=== PATIENT | female | born 1980 | race African-American/Black ===

== ENCOUNTER 2016-08-27 12:32 | Emergency (ER) | payer BC, OTHER ==
[~2016-08-27] VITALS: Ht 162.6 cm; Wt 65.8 kg
[~2016-08-27 12:32] MED LIST: AUGMENTIN 875875 MG PO; BACTRIM DS TAB1 EACH PO; FLAGYL500 M1 PO; HYDROCODONE-APA1 TA1 PO; IBUPROFEN 800800 MG PO; NAPROSYN500 MG PO; NOHOMEMEDICATIONS; NORCO 5-325 TA1 EACH PO; PRILOSEC 20 MG20 MG PO; SENOKOT-S1 TA1 PO; TRAMADOL 50 MG50 MG PO; ULTRAM 50MG TAB50 MG PO
[2016-08-27] MEDS ORDERED: MUPIROCIN15 GM TP (13:34)
== END 2016-08-27 13:50 | disposition home or self-care (01) ==
LOC: ER 12:32
DX: L73.8 Other specified follicular disorders (principal); Z71.1 Person with feared health complaint in whom no diagnosis is made

== ENCOUNTER 2019-01-21 09:21 | Emergency (ER) | payer BC, OTHER ==
[~2019-01-21] VITALS: Ht 160 cm; Wt 45.4 kg
[~2019-01-21 09:21] MED LIST changes: +MUPIROCIN15 GM TP
[2019-01-21] MEDS ORDERED: SUDOGEST30 MG PO (11:59)
[2019-01-21] MEDS ORDERED: TESSALON PERLE100 MG PO (11:59)
[2019-01-21] MEDS ORDERED: VENTOLIN HFA 1818 GM INH (11:59)
[2019-01-21 12:05] VITALS: BP 111/71
== END 2019-01-21 12:10 | disposition home or self-care (01) ==
LOC: ER 09:21
DX: J06.9 Acute upper respiratory infection, unspecified (principal); J98.01 Acute bronchospasm; Z87.891 Personal history of nicotine dependence

== ENCOUNTER 2020-08-15 20:52 | Emergency (ER) | payer BC, OTHER ==
[~2020-08-15] VITALS: Ht 160 cm; Wt 61.2 kg
[~2020-08-15 20:52] MED LIST changes: +SUDOGEST30 MG PO; +TESSALON PERLE100 MG PO; +VENTOLIN HFA 1818 GM INH
[2020-08-15 21:38] LABS: URINE BILIRUBIN NEGATIVE (Negative); URINE BLOOD 3+ (Negative); URINE CLARITY CLEAR; URINE COLOR YELLOW; URINE GLUCOSE-RANDOM* NEGATIVE (Negative); URINE KETONES 1+ (Negative); URINE LEUKOCYTES-REFLEX TRACE (Negative); URINE NITRITE-REFLEX NEGATIVE (Negative); URINE PROTEIN (DIPSTICK) TRACE (Negative)
[2020-08-15 21:50] LABS: SQUAMOUS >10 Many /LPF (0-3)
[2020-08-15 21:51] LABS: BACTERIA-REFLEX None Seen /HPF (None Seen); CASTS None Seen /LPF (None Seen); CRYSTALS None Seen /LPF (None Seen); URINE RBC 3-10 Few /HPF (NONE SEEN); URINE WBC-REFLEX 0-5 Rare /HPF (0-5)
[2020-08-15 22:07] LABS: ABSOLUTE NEUTROPHILS 5.8 thou/uL (1.4-8.2); BASOPHILS 0.6 % (0.0-2.0); EOSINOPHILS 0.2 % (0.0-3.0); HEMOGLOBIN 12.3 gm/dL (12.0-15.0); LYMPHOCYTES 10.7 % (24.0-44.0); MCH 26.8 pg (26.0-34.0); MCHC 33.3 g/dL (28.0-37.0); MCV 80.7 fL (80.0-100.0); MONOCYTES 2.8 % (1.0-8.0); PLATELET COUNT 211 thou/uL (150-400); POLYS 85.7 % (36.0-66.0); RBC 4.59 mil/uL (4.20-5.00); RDW 14.1 % (10.5-14.5); WBC 6.7 thou/uL (4.0-11.0)
[2020-08-15 22:13] LABS: CALCIUM 8.8 mg/dL (8.5-10.1); CREATININE 0.8 mg/dL (0.6-1.0); POTASSIUM 3.7 mmol/L (3.5-5.1)
[2020-08-15 22:20] LABS: ALBUMIN 3.9 g/dL (3.4-5.0); TOTAL BILIRUBIN 0.4 mg/dL (0.2-1.0); TOTAL PROTEIN 7.4 g/dL (6.4-8.2)
[2020-08-16] MEDS ORDERED: CARAFATE1 GM PO (00:20)
[2020-08-16] MEDS ORDERED: ZOFRAN ODT4 MG PO (00:20)
[2020-08-16] MEDS ORDERED: NEXIUM40 MG PO (00:20)
[2020-08-16 00:52] VITALS: BP 121/71
== END 2020-08-16 00:53 | disposition home or self-care (01) ==
LOC: ER 20:52
PROVIDERS: Emergency Medicine
DX: K29.70 Gastritis, unspecified, without bleeding (principal); F17.210 Nicotine dependence, cigarettes, uncomplicated

== ENCOUNTER 2020-12-06 13:44 | Emergency (ER) | payer BC, OTHER ==
[~2020-12-06] VITALS: Ht 160 cm; Wt 61.2 kg
[~2020-12-06 13:44] MED LIST changes: +CARAFATE1 GM PO; +NEXIUM40 MG PO; +ZOFRAN ODT4 MG PO
[2020-12-06 14:30] LABS: ABSOLUTE NEUTROPHILS 4.8 thou/uL (1.4-8.2); BASOPHILS 0.9 % (0.0-2.0); EOSINOPHILS 0.8 % (0.0-3.0); HEMATOCRIT 41.5 % (37.0-47.0); HEMOGLOBIN 13.9 gm/dL (12.0-15.0); LYMPHOCYTES 23.9 % (24.0-44.0); MCH 27.1 pg (26.0-34.0); MCHC 33.6 g/dL (28.0-37.0); MCV 80.7 fL (80.0-100.0); MONOCYTES 4.3 % (1.0-8.0); PLATELET COUNT 222 thou/uL (150-400); POLYS 70.1 % (36.0-66.0); RBC 5.14 mil/uL (4.20-5.00); WBC 6.8 thou/uL (4.0-11.0)
[2020-12-06 14:32] LABS: URINE BILIRUBIN NEGATIVE (Negative); URINE BLOOD NEGATIVE (Negative); URINE CLARITY CLEAR; URINE COLOR YELLOW; URINE GLUCOSE-RANDOM* NEGATIVE (Negative); URINE KETONES 1+ (Negative); URINE LEUKOCYTES-REFLEX NEGATIVE (Negative); URINE NITRITE-REFLEX NEGATIVE (Negative); URINE PROTEIN (DIPSTICK) NEGATIVE (Negative); URINE SPECIFIC GRAVITY <= 1.005 (1.005-1.035); URINE UROBILINOGEN 0.2 E.U./dl (0.2-1.0)
[2020-12-06 14:44] LABS: CALCIUM 9.1 mg/dL (8.5-10.1); CREATININE 0.9 mg/dL (0.6-1.0); POTASSIUM 3.8 mmol/L (3.5-5.1)
[2020-12-06] MEDS ORDERED: PREDNISONE 20 M20 MG PO (16:50)
[2020-12-06] MEDS ORDERED: CARAFATE 1 GM TA1 G1 PO (16:50)
[2020-12-06] MEDS ORDERED: PROAIR HFA8.5 GM INH (16:50)
[2020-12-06] MEDS ORDERED: OMEPRAZOLE40 MG PO (16:50)
[2020-12-06 16:59] VITALS: BP 115/72
--- NOTE | 2020-12-08 07:37 | EKG ---
[facility] [place] [address] ELECTROCARDIOGRAM REPORT Name: CONCHITA GAGNONCIA [place] [facility]: [facility] [id number] Admission: 12/06/20 Attend Phys: Discharge: 12/06/20 Date of : 78 Report #: [id number] [facility] ED Test Date: 2020-12-06 Test Time: 14:35:42 Pat Name: RUKHSANA GAGNON Department: Room: Gender: F [employer] Sales Assistant: bruce : 1980 Requested By: Javier Patel Order Number: [id number] MD: Gurpreet Brody Measurements Intervals [place] Rate: 93 P: 60 WV: 133 QRS: 8 QRSD: 89 T: 6 QT: 346 QTc: 431 Interpretive Statements Sinus rhythm Probable left atrial enlargement RSR' in V1 or V2, probably normal variant No previous ECG available for comparison Electronically Signed On 12-08-2020 7:37:23 CDT by Gurpreet Brody [email or web address] <ELECTRONICALLY SIGNED> By: Gurpreet Brody MD, [facility] 12/08/20 0737 1435 1435 Gurpreet Brody MD, FACC /EPI
== END 2020-12-06 17:28 | disposition home or self-care (01) ==
LOC: ER 13:44
PROVIDERS: Nurse Practitioner
DX: R06.00 Dyspnea, unspecified (principal); Z20.822 Contact with and (suspected) exposure to COVID-19; Z79.899 Other long term (current) drug therapy; Z87.891 Personal history of nicotine dependence

== ENCOUNTER 2020-12-08 12:04 | Emergency (ER) | payer BC, OTHER ==
[~2020-12-08] VITALS: Ht 160 cm; Wt 61.2 kg
[~2020-12-08 12:04] MED LIST changes: +CARAFATE 1 GM TA1 G1 PO; +OMEPRAZOLE40 MG PO; +PREDNISONE 20 M20 MG PO; +PROAIR HFA8.5 GM INH
[2020-12-08 13:26] VITALS: BP 96/59
== END 2020-12-08 13:26 | disposition home or self-care (01) ==
LOC: ER 12:04
DX: F41.9 Anxiety disorder, unspecified (principal); R06.02 Shortness of breath; Z87.891 Personal history of nicotine dependence